=== PATIENT | male | born 1945 | race Caucasian/White ===

== ENCOUNTER 2023-06-07 02:05 | Day surgery (SDC) | payer MEDICARE, SELFPAY ==
[2023-05-27 12:46] VITALS: BMI 34.3
[2023-06-07 13:41] VITALS: BP 123/64; PULSE 84; RESP 20; TEMP 36.2; O2SAT 99; BMI 33.5
[2023-06-07] MEDS: LACTATED RINGERS 1,000 ML 150 ML IV CONT (13:53)
--- NOTE | 2023-06-07 13:53 | WPDANESEPPF ---
Anes - Initial Pre Proc Eval Procedure: Operation Date: 06/07/23 14:00 Proposed Procedures p Esophagogastroduodenoscopy & Colonoscopy - Yasmani Hinson MD Date/Time: 06/07/23 13:53 Surgeon: Yasmani Hinson MD Pre Op Diagnosis: Abdominal Pain,Abnormal finding on CT Scan Patient Data Age: 78 Gender: M Height: 1.85 m Weight: 115.2 kg Last Vital Signs Temp 97.1 F L 06/07/23 13:41 Pulse 84 06/07/23 13:41 Resp 20 06/07/23 13:41 BP 123/64 06/07/23 13:41 Pulse Ox 99 06/07/23 13:41 O2 Del Method Room Air 06/07/23 13:41 Allergies Allergy/AdvReac Type Severity Reaction Status Date / Time No Known Allergies Allergy Verified 06/07/23 13:39 Home Medications Medication Instructions Recorded Confirmed Type aspirin 81 mg capsule 81 mg PO DAILY 05/27/23 05/27/23 History dulaglutide 3 mg/0.5 mL 3 mg subcut WEEKLY 05/27/23 05/27/23 History subcutaneous pen injector (Trulicity) empagliflozin 25 mg tablet 25 mg PO DAILY 05/27/23 05/27/23 History (Jardiance) hydrochlorothiazide 25 mg tablet 25 mg PO DAILY 05/27/23 05/27/23 History insulin degludec 100 unit/mL (3 45 unit subcut DAILY 05/27/23 05/27/23 History mL) subcutaneous pen (Tresiba FlexTouch U-100 insulin) lisinopril 20 mg tablet 20 mg PO DAILY 05/27/23 05/27/23 History metformin 1,000 mg tablet 1,000 mg PO DAILY 05/27/23 05/27/23 History metoprolol succinate 50 mg 50 mg PO DAILY 05/27/23 05/27/23 History tablet,extended release 24 hr rosuvastatin 10 mg tablet 10 mg PO DAILY 05/27/23 05/27/23 History Patient hx anesthesia problems: none Family hx anesthesia problems: none Results Review: All pre-operative results and documents have been reviewed as part of the pre-operative evaluation. [facility] Social History Social History Smoking status: Never smoker Alcohol intake: current Drinks per week: 14 Alcohol use details: 2 beers daily Substance use: never Substance use type: does not use Living arrangements: with family Spiritual care concerns: No Anes - Eval Final PreProcedure Day of Procedure 06/07/23 13:53 Patient weight: obese Heart: regular rate and rhythm Lungs: clear to auscultation Airway: Mallampati scale class II Neurological: alert and oriented Last oral intake: >/= 8 hours ASA classification: III Emergent: no Anesthetic plan: proceed Anesthesia type and monitoring: general GIVS and standard monitoring Results Review: All pre-operative results and documents have been reviewed as part of the pre-operative evaluation. Informed Consent: The patient's anesthetic plan and its attendant risks and benefits were discussed with the patient/family/POA. Questions were solicited and answers provided to the satisfaction of the patient/family/POA.
[2023-06-07 13:54] LABS: Glucose Point of Care 82 mg/dl (65-105)
--- NOTE | 2023-06-07 14:11 | PM.HPGS ---
History of Present Illness History of Present Illness Consent: Risks, benefits, and alternatives have been discussed and questions answered. Patient agrees to proceed with procedure. Chief complaint: Abdominal Pain,Abnormal finding on CT Scan Narrative: Delgado Otero is a 78 year old male Referred for colonoscopy. Patient states that several weeks ago he woke up in the middle of the night with rather significant abdominal cramps in diarrhea. Patient had empiric CT scan of the abdomen 1st week in the May that was unremarkable. when he developed the abdominal pain and diarrhea he went to the emergency room. CT scan in the ER, one week after first ct scan, suggested thickening of a portion of the colon. Patient states the next morning abdominal pain cramps and diarrhea resolved. Patient is referred now for colonoscopy to exclude organic disease. He states many years ago had a polyp of uncertain nature. He has had several previous colonoscopies been some years since most recent colonoscopy. Review of Systems Review of Systems: Review of systems noncontributory. PMFSH Social History Social History Smoking status: Never smoker Alcohol intake: current Drinks per week: 14 Alcohol use details: 2 beers daily Substance use: never Substance use type: does not use Living arrangements: with family Spiritual care concerns: No Meds Home Medications and Allergies Home Medications Medication Instructions Recorded Confirmed Type aspirin 81 mg capsule 81 mg PO DAILY 05/27/23 05/27/23 History dulaglutide 3 mg/0.5 mL 3 mg subcut WEEKLY 05/27/23 05/27/23 History subcutaneous pen injector (Trulicity) empagliflozin 25 mg tablet 25 mg PO DAILY 05/27/23 05/27/23 History (Jardiance) hydrochlorothiazide 25 mg tablet 25 mg PO DAILY 05/27/23 05/27/23 History insulin degludec 100 unit/mL (3 45 unit subcut DAILY 05/27/23 05/27/23 History mL) subcutaneous pen (Tresiba FlexTouch U-100 insulin) lisinopril 20 mg tablet 20 mg PO DAILY 05/27/23 05/27/23 History metformin 1,000 mg tablet 1,000 mg PO DAILY 05/27/23 05/27/23 History metoprolol succinate 50 mg 50 mg PO DAILY 05/27/23 05/27/23 History tablet,extended release 24 hr rosuvastatin 10 mg tablet 10 mg PO DAILY 05/27/23 05/27/23 History Allergies Allergy/AdvReac Type Severity Reaction Status Date / Time No Known Allergies Allergy Verified 06/07/23 13:39 Vital Signs Vital Signs - 24 hr 06/07/23 13:41 Temperature 97.1 F L Pulse Rate 84 Respiratory Rate 20 Blood Pressure 123/64 Pulse Oximetry 99 Oxygen Delivery Room Air Exam Narrative: Physical exam reveals patient to be alert. Vitals signs are normal. HEENT exam is unremarkable. Patient is anicteric. Lungs are clear to auscultation and to percussion. Heart is without murmur or extra sounds. Abdomen bowel sounds are present soft nontender with no organomegaly. Digital external rectal exam normal Assessment and Plan Assessment and plan (1) Abnormal CT scan, colon: Code(s): R93.3 - Abnormal findings on diagnostic imaging of other parts of digestive tract Status: Acute Assessment and Plan: Abnormal CT scan findings include bowel wall thickening which may be from a spasm or muscle contraction. Perhaps related to his acute diarrhea. Symptoms have now resolved patient back to normal. Colonoscopy requested will be performed. Recommend patient try fiber supplementation.
--- NOTE | 2023-06-07 15:09 | SUR.OPER ---
EGD END 1502 COLONOSCOPY START 1508
[2023-06-07 15:25] VITALS: BP 91/48; PULSE 84; RESP 20; O2SAT 100
[2023-06-07 15:35] VITALS: BP 101/56; PULSE 76; RESP 20; O2SAT 99
[2023-06-07 15:36] LABS: Glucose Point of Care 71 mg/dl (65-105)
[2023-06-07 15:45] VITALS: BP 119/52; PULSE 76; RESP 22; O2SAT 99
== END 2023-06-07 16:02 | disposition home or self-care (01) ==
PROVIDERS: PCP Internal Medicine; Visit Provider Internal Medicine Gastroenterology
PROC: 0DJ08ZZ Inspection of Upper Intestinal Tract, Via Natural or Artificial Opening Endoscopic (ICD-10-PCS; CPT 43235; principal; 2023-06-07 14:00)
DX: K64.8 Other hemorrhoids (principal); K21.00 Gastro-esophageal reflux disease with esophagitis, without bleeding; Z79.82 Long term (current) use of aspirin; Z79.85 Long-term (current) use of injectable non-insulin antidiabetic drugs; Z79.84 Long term (current) use of oral hypoglycemic drugs; Z79.4 Long term (current) use of insulin; E66.9 Obesity, unspecified; Z68.33 Body mass index [BMI] 33.0-33.9, adult
CPT/HCPCS: 45378; 43239; 82948; 87081; J2001; J2371; J2704; J7120